=== PATIENT | female | born 1970 | race Caucasian/White ===

== ENCOUNTER 2018-05-27 01:21 | Emergency (ER) | payer BC ==
[2018-05-27] MEDS ORDERED: LORazepam 1 MG Tab PO ONE (01:41)
--- NOTE | 2018-05-27 01:42 | EDM.PDOC ---
ED HPI GENERAL MEDICAL PROBLEM - General Chief Complaint: General Stated Complaint: POSSIBLE ANXIETY ATTACK Time Seen by Provider: 05/27/18 01:30 - History of Present Illness INITIAL COMMENTS - FREE TEXT/NARRATIVE: HISTORY AND PHYSICAL: History of present illness: The patient is a 48-year-old female who has a history of retention hypercholesterolemia and hypothyroidism who follows at [facility] and presents with symptoms that she feels are similar to an anxiety attack. She says she has had issues with anxiety in the past episodically and she has felt more anxious lately due to a number of family deaths and in the past she had medication for this but she never used it so was never refilled. She says that she doesn't drink an excessive amount of caffeinated products doesn't smoke or do any drugs and only occasionally drinks. She said that this evening about 11: 30 PM she was trying to go to sleep and she was laying in bed and did feel a little bit anxious which she says is described very ill-defined and just an internal sensation she gets, and that she got up and sat in the recliner and said that it seemed to worsen but it was not associated with palpitations but there was some shortness of breath and dizziness/lightheadedness. Patient passed out or blackout she wasn't nauseated she didn't have any abdominal pain. She has no chest pain per se but says that she feels like she has to control her breathing but she does not feel short of breath. She says she feels internally shaky although she is not visibly shaking. When it did not rhianna she came in for evaluation. Earlier yesterday she had a completely normal day without any systemic complaints and ate and drink normally had normal urine output and no diarrhea or other systemic complaints. She has no weakness numbness tingling in her extremities. Patient states she did forget to take her blood pressure medication at the normal time and didn't take it this evening at 12:30 AM. Review of systems: As per history of present illness and below otherwise all systems reviewed and negative. Past medical history: As per history of present illness and as reviewed below otherwise noncontributory. Surgical history: As per history of present illness and as reviewed below otherwise noncontributory. Social history: No reported history of drug or alcohol abuse. Family history: As per history of present illness and as reviewed below otherwise noncontributory. Physical exam: General: Well-developed well-nourished female who is nontoxic and vital signs are reviewed by me. She is speaking clearly and easily in the ED without distress HEENT: Atraumatic, normocephalic, pupils reactive, negative for conjunctival pallor or scleral icterus, mucous membranes moist, throat clear, neck supple, nontender, trachea midline. Lungs: Clear to auscultation, breath sounds equal bilaterally, chest nontender. No worker breathing wheezing or stridor Heart: S1S2, regular rate and rhythm no overt murmurs Abdomen: Soft, nondistended, nontender. Negative for masses or hepatosplenomegaly. NABS Pelvis: Deferred Genitourinary: Deferred. Rectal: Deferred. Extremities: Atraumatic, negative for cords or calf pain. Neurovascular unremarkable. Neuro: Awake, alert, oriented. Cranial nerves II through XII unremarkable. Cerebellum unremarkable. Motor and sensory unremarkable throughout. Exam nonfocal. Diagnostics: EKG CBC CMP TSH troponin magnesium UA chest x-ray Therapeutics: Oxygen as needed desk monitor Ativan by mouth I discussed all testing results with the patient and family at bedside and she does feel improved. We discussed options and she would prefer outpatient treatment and she will contact her provider at [facility] this morning to discuss possibilities of having some medication available if she has another episode like this. Advised on reasons to return to the ED Impression: Episode of anxiety/ill feeling improved Definitive disposition and diagnosis as appropriate pending reevaluation and review of above. - Related Data Allergies Allergy/AdvReac Type Severity Reaction Status Date / Time No Known Allergies Allergy Verified 05/27/18 01:32 Home Meds: Home Meds Cetirizine [ZyrTEC] 10 mg PO DAILY 05/27/18 [History] Levothyroxine Sodium [Synthroid] 112 mg PO DAILY 05/27/18 [History] Lisinopril/Hydrochlorothiazide [Lisinopril-Hctz 20-12.5 mg Tab] 1 mg PO DAILY [History] Montelukast [Singulair] 10 mg PO DAILY 05/27/18 [History] atorvaSTATin [Lipitor] 40 mg PO DAILY 05/27/18 [History] Social & Family History - Tobacco Use Smoking Status *Q: Never Smoker Second Hand Smoke Exposure: No - Caffeine Use Caffeine Use: Reports: None - Recreational Drug Use Recreational Drug Use: No ED ROS GENERAL - Review of Systems Review Of Systems: ROS reveals no pertinent complaints other than HPI. ED EXAM, GENERAL - Physical Exam Exam: See Below (see dictation) Course - Vital Signs Last Recorded V/S: Last Vital Signs Temp 36.3 C 05/27/18 01:27 Pulse 77 05/27/18 02:06 Resp 18 05/27/18 02:06 BP 149/77 H 05/27/18 02:06 Pulse Ox 99 05/27/18 01:27 - Orders/Labs/Meds Orders: Active Orders 24 hr Category Date Time Status Cardiac Monitoring [RC] . DIRECTED Care 05/27/18 01:40 Active EKG Documentation Completion [RC] STAT Care 05/27/18 01:34 Active Oxygen Therapy, ED [RC] ASDIRECTED Care 05/27/18 01:40 Active Pulse Oximetry [RC] ASDIRECTED Care 05/27/18 01:40 Active Chest 1V Frontal [CR] Stat Exams 05/27/18 01:41 Taken Labs: Laboratory Tests 05/27/18 05/27/18 05/27/18 Range/Units 02:11 02:11 02:35 WBC 7.46 (4.0-11.0) K/uL RBC 4.26 L (4.30-5.90) M/uL Hgb 13.0 (12.0-16.0) g/dL Hct 37.3 (36.0-46.0) % MCV 87.6 (80.0-98.0) fL MCH 30.5 (27.0-32.0) pg MCHC 34.9 (31.0-37.0) g/dL RDW Std Deviation 39.9 (28.0-62.0) fl RDW Coeff of [place] 13 (11.0-15.0) % Plt Count 264 (150-400) K/uL MPV 9.60 (7.40-12.00) fL Neut % (Auto) 58.5 (48.0-80.0) % Lymph % (Auto) 30.2 (16.0-40.0) % [place] % (Auto) 9.2 (0.0-15.0) % Eos % (Auto) 1.7 (0.0-7.0) % Baso % (Auto) 0.4 (0.0-1.5) % Neut # (Auto) 4.4 (1.4-5.7) K/uL Lymph # (Auto) 2.3 (0.6-2.4) K/uL [place] # (Auto) 0.7 (0.0-0.8) K/uL Eos # (Auto) 0.1 (0.0-0.7) K/uL Baso # (Auto) 0.0 (0.0-0.1) K/uL Nucleated RBC % 0.0 /100WBC Nucleated RBCs # 0 K/uL Sodium 140 (136-145) mmol/L Potassium 3.6 (3.5-5.1) mmol/L Chloride 104 (98-107) mmol/L Carbon Dioxide 29.6 (21.0-32.0) mmol/L BUN 18 (7.0-18.0) mg/dL Creatinine 1.2 H (0.6-1.0) mg/dL Est Cr Clr Drug Dosing 48.43 mL/min Estimated GFR (MDRD) 47.6 ml/min Glucose 133 H (74-106) mg/dL Calcium 9.1 (8.5-10.1) mg/dL Magnesium 1.8 (1.8-2.4) mg/dL Total Bilirubin 0.3 (0.2-1.0) mg/dL AST 16 (15-37) IU/L ALT 21 (14-63) IU/L Alkaline Phosphatase 72 (46-116) U/L Troponin I < 0.050 (0.000-0.056) ng/mL Total Protein 7.1 (6.4-8.2) g/dL Albumin 3.8 (3.4-5.0) g/dL Globulin 3.3 (2.0-3.5) g/dL Albumin/Globulin Ratio 1.2 L (1.3-2.8) TSH 3rd Generation 0.94 (0.36-3.74) uIU/mL Urine Color YELLOW Urine Appearance CLEAR Urine pH 5.5 (5.0-8.0) Ur Specific [place] <= 1.005 (1.001-1.035) Urine Protein NEGATIVE (NEGATIVE) mg/dL Urine Glucose (UA) NEGATIVE (NEGATIVE) mg/dL Urine Ketones NEGATIVE (NEGATIVE) mg/dL Urine Occult Blood NEGATIVE (NEGATIVE) Urine Nitrite NEGATIVE (NEGATIVE) Urine Bilirubin NEGATIVE (NEGATIVE) Urine Urobilinogen 0.2 (<2.0) EU/dL Ur Leukocyte Esterase NEGATIVE (NEGATIVE) Urine RBC NONE SEEN (0-2/HPF) Urine WBC 0-1 (0-5/HPF) Ur Epithelial Cells RARE (NONE-FEW) Urine Bacteria RARE (NEGATIVE) Urine Mucus LIGHT (NONE-MOD) Meds: Medications Discontinued Medications Generic Name Dose Route Start Last Admin Trade Name Shelly PRN Reason Stop Dose Admin Lorazepam 1 mg 05/27/18 01:41 05/27/18 01:51 Ativan PO 05/27/18 01:42 1 mg ONETIME ONE Administration Departure - Departure Time of Disposition: 03:14 Disposition: Home, Self-Care 01 Condition: Good Clinical Impression: Ill feeling, Episode of anxiety - Discharge Information Referrals: PCP,None [Primary Care Provider] - Forms: ED Department Discharge Additional Instructions: The following information is given to patients seen in the emergency department who are being discharged to home. This information is to outline your options for follow-up care. We provide all patients seen in our emergency department with a follow-up referral. The need for follow-up, as well as the timing and circumstances, are variable depending upon the specifics of your emergency department visit. If you don't have a primary care physician on staff, we will provide you with a referral. We always advise you to contact your personal physician following an emergency department visit to inform them of the circumstance of the visit and for follow-up with them and/or the need for any referrals to a consulting specialist. The emergency department will also refer you to a specialist when appropriate. This referral assures that you have the opportunity for followup care with a specialist. All of these measure are taken in an effort to provide you with optimal care, which includes your followup. Under all circumstances we always encourage you to contact your private physician who remains a resource for coordinating your care. When calling for followup care, please make the office aware that this follow-up is from your recent emergency room visit. If for any reason you are refused follow-up, please contact the [facility] emergency department at and ask to speak to the emergency department charge nurse. [address] [place] [address] Please contact her provider later today and discuss with her some options for handling these types of episodes going forward and any further testing she might feel is indicated. Try to reduce caffeinated products and reduce stressors. Return to ER as needed and as discussed. - My Orders Last 24 Hours: My Active Orders 05/27/18 01:34 EKG Documentation Completion [RC] STAT 05/27/18 01:40 Cardiac Monitoring [RC] . DIRECTED Oxygen Therapy, ED [RC] ASDIRECTED Pulse Oximetry [RC] ASDIRECTED 05/27/18 01:41 Chest 1V Frontal [CR] Stat - Assessment/Plan Last 24 Hours: My Active Orders 05/27/18 01:34 EKG Documentation Completion [RC] STAT 05/27/18 01:40 Cardiac Monitoring [RC] . DIRECTED Oxygen Therapy, ED [RC] ASDIRECTED Pulse Oximetry [RC] ASDIRECTED 05/27/18 01:41 Chest 1V Frontal [CR] Stat
[2018-05-27 02:52] LABS: CHLORIDE,CL 104 mmol/L (98-107); SODIUM,NA 140 mmol/L (136-145)
--- NOTE | 2018-05-27 13:05 | CR ---
EXAM DATE: 05/27/18 PATIENT'S AGE: 48 Patient: VINCENT GARAY Facility: [place], [place] Site . Site : [id number] Study: XRay Chest [id number]/21/2018 2:11:06 AM Ordering Physician: Marni Dior Final Report: INDICATION: Pain, Shortness of Breath, Anxiety Attack TECHNIQUE: Chest 1 view. COMPARISON: None. FINDINGS: Cardiovascular and mediastinum: Heart size and vasculature are normal in caliber and appearance. Mediastinum is within normal limits. Lungs and pleural space: Lungs are clear. No sign of infiltrate or mass. No sign of pleural effusion. No pneumothorax. Bones and soft tissues: No significant findings. IMPRESSION: Unremarkable chest. Dictated by: Royer Chou MD @ 05/27/2018 02:22:37 (Electronic Signature) Report Signed by Proxy. [facility] HOSPITALRadha
== END 2018-05-27 03:30 | disposition home or self-care (01) ==
LOC: MW.ED 01:21
DX: F41.9 Anxiety disorder, unspecified (principal); Z79.899 Other long term (current) drug therapy
CPT/HCPCS: 36415; 71045; 80053; 81001; 83735; 84443; 84484; 85025; 99284; A9270; 99283

== ENCOUNTER 2020-12-03 08:07 | Day surgery (SDC) | payer BC ==
[~2020-12-03 08:07] MED LIST: Lactated Ringers 1,000 ML IV SCH; Sodium Chloride 0.9% 10 ML SDV IV PRN; Sodium Chloride 0.9% 10 ML Syringe FLUSH PRN; Sodium Chloride 0.9% 2.5 ML Syringe FLUSH PRN
--- NOTE | 2020-12-03 08:41 | PCM.PREANE ---
Preanesthetic Assessment - Anesthesia/Transfusion/Family Hx Anesthesia History: Prior Anesthesia Without Reaction Family History of Anesthesia Reaction: No Transfusion History: No Prior Transfusion(s) - Physical Assessment NPO Status Date: 12/03/20 NPO Status Time: 00:05 Vital Signs: Last Vital Signs Temp 35.7 C L 12/03/20 08:22 Pulse 77 12/03/20 08:22 Resp 16 12/03/20 08:22 BP 131/81 12/03/20 08:22 Pulse Ox 98 12/03/20 08:22 Height: 1.57 m Weight: 93.44 kg ASA Class: 2 - Allergies Allergies/Adverse Reactions: Allergies Allergy/AdvReac Type Severity Reaction Status Date / Time No Known Allergies Allergy Verified 12/03/20 08:37 - Acknowledgements Pt an Appropriate Candidate for the Planned Anesthesia: Yes Alternatives and Risks of Anesthesia Discussed w Pt/Guardian: Yes Pt/Guardian Understands and Agrees with Anesthesia Plan: Yes PreAnesthesia Questionnaire HEENT History: Reports: Allergic Rhinitis, Other (See Below) Other HEENT History: wears glasses/contacts Cardiovascular History: Reports: High Cholesterol, Hypertension Other Cardiovascular History: hx of hypertension-no longer on medication Respiratory History: Reports: None Gastrointestinal History: Reports: GERD, Other (See Below) Other Gastrointestinal History: occasional heartburn- takes TUMS Genitourinary History: Reports: None POWER PRESS TENDER History: Reports: None Musculoskeletal History: Reports: None Neurological History: Reports: Vertigo, Other (See Below) Other Neuro History: hx of motion sickness and claustrophobia Psychiatric History: Reports: Anxiety Other Psychiatric History: does not take any medication for anxiety Endocrine/Metabolic History: Reports: Hypothyroidism, Obesity/BMI 30+ Hematologic History: Reports: None Immunologic History: Reports: None Oncologic (Cancer) History: Reports: None Dermatologic History: Reports: None - Infectious Disease History Infectious Disease History: Reports: None - Past Surgical History Head Surgeries/Procedures: Reports: None HEENT Surgical History: Reports: None Cardiovascular Surgical History: Reports: None Respiratory Surgical History: Reports: None GI Surgical History: Reports: Cholecystectomy Female Surgical History: Reports: None Endocrine Surgical History: Reports: None Neurological Surgical History: Reports: None Musculoskeletal Surgical History: Reports: None Oncologic Surgical History: Reports: None Dermatological Surgical History: Reports: Skin Biopsy, Other (See Below) - SUBSTANCE USE Tobacco Use Status *Q: Never Tobacco User - HOME MEDS Home Medications: Home Meds atorvaSTATin [Lipitor] 40 mg PO BEDTIME 05/27/18 [History] Levothyroxine [Synthroid] 100 mcg PO BEDTIME 09/22/19 [History] Multivitamin [Daily Multiple Vitamin] 1 tab PO DAILY 09/22/19 [History] Cetirizine [ZyrTEC] 10 mg PO DAILY 11/27/20 [History] - CURRENT (IN HOUSE) MEDS Current Meds: Current Medications Lactated Ringer's (Ringers, Lactated) 1,000 mls @ 125 mls/hr IV ASDIRECTED STEPHANY Last Admin: 12/03/20 08:21 Dose: 125 mls/hr Documented by: Sodium Chloride (Sodium Chloride 0.9% 10 Ml Syringe) 10 ml FLUSH ASDIRECTED PRN PRN Reason: Keep Vein Open Sodium Chloride (Sodium Chloride 0.9% 2.5 Ml Syringe) 2.5 ml FLUSH ASDIRECTED PRN PRN Reason: Keep Vein Open Sodium Chloride (Sodium Chloride 0.9% 10 Ml Syringe) 10 ml FLUSH ASDIRECTED PRN PRN Reason: Keep Vein Open Sodium Chloride (Sodium Chloride 0.9% 2.5 Ml Syringe) 2.5 ml FLUSH ASDIRECTED PRN PRN Reason: Keep Vein Open Sodium Chloride (Sodium Chloride 0.9% 10 Ml Sdv) 10 ml IV ASDIRECTED PRN PRN Reason: IV Use
[2020-12-03] MEDS ORDERED: fentaNYL 100 MCG/2 ML SDV ONE (08:47)
[2020-12-03] MEDS ORDERED: Propofol 200 MG/20 ML SDV ONE (08:47)
--- NOTE | 2020-12-03 09:44 | PCM.OPNOTE ---
- General Post-Op/Procedure Note Date of Surgery/Procedure: 12/03/20 Operative Procedure(s): Screening colonoscopy Findings: Normal colonoscopy Pre Op Diagnosis: Screening colonoscopy Post-Op Diagnosis: Normal colonoscopy Anesthesia Technique: MAC Primary Surgeon: Lindy Rodriguez Condition: Good
--- NOTE | 2020-12-03 10:01 | PCM.POSTAN ---
POST ANESTHESIA ASSESSMENT - MENTAL STATUS Mental Status: Alert (ano anesthetic complications), Oriented - VITAL SIGNS Vital Signs: Last Vital Signs Temp 96.3 F L 12/03/20 08:22 Pulse 76 12/03/20 09:42 Resp 14 12/03/20 09:42 BP 112/61 12/03/20 09:42 Pulse Ox 96 12/03/20 09:42 - RESPIRATORY Respiratory Status: Respiratory Rate WNL, Airway Patent, O2 Saturation Stable - CARDIOVASCULAR CV Status: Pulse Rate WNL, Blood Pressure Stable - GASTROINTESTINAL GI Status: No Symptoms - POST OP HYDRATION Hydration Status: Adequate & Stable
--- NOTE | 2020-12-03 20:07 | OR ---
SURGEON: LINDY RODRIGUEZ MD DATE OF PROCEDURE: 12/03/2020 PREOPERATIVE DIAGNOSIS: Screening colonoscopy. POSTOPERATIVE DIAGNOSIS: Screening colonoscopy. PROCEDURE PERFORMED: Screening colonoscopy. PRIMARY SURGEON: Lindy Rodriguez MD ANESTHESIA: MAC. INSTRUMENT USED: Olympus colonoscope. EXTENT OF EXAM: To the cecum. PREPARATION: Good. LIMITATIONS: None. INDICATIONS FOR EXAMINATION: The patient is a 50-year-old female who presents for screening colonoscopy. I explained the procedure, expected perioperative course, and the risks. The patient verbalized understanding and wishes to proceed. PROCEDURE IN DETAIL: The patient was brought in to the endoscopy suite and placed in a left lateral decubitus position. A time-out was completed verifying the patient's name, age, date of , allergies, and procedure to be performed. Monitored anesthesia care was induced and continuous oxygen was provided via face mask throughout the procedure. After adequate sedation was achieved, a digital rectal exam was performed. This exam was within normal limits. A well-lubricated colonoscope was inserted in the rectum and advanced under direct visualization to the level of the cecum. The cecum was identified by both visual and anatomic landmarks. A photograph was taken of the cecum as well as with the scope retroflexed within the cecum. The scope was then fully withdrawn while examining the color, texture, anatomy, and integrity of mucosa from the cecum to the anal canal. The findings were consistent with normal colonic mucosa. The scope was brought into the rectum and retroflexed to allow visualization of the anal canal opening. This appeared normal and a photograph was taken. The scope was then straightened out and fully withdrawn. The cecum to anus time was 9 minutes. The patient tolerated the procedure well and was transferred to the PACU in stable condition. ENDOSCOPIC DIAGNOSIS: Normal colonoscopy. RECOMMENDATIONS: Follow up in clinic in 10 years. [facility] / [place] /[id number]
== END 2020-12-03 10:06 | disposition home or self-care (01) ==
LOC: MW.SDS 08:07
PROVIDERS: ATTEND Surgery
DX: Z12.11 Encounter for screening for malignant neoplasm of colon (principal); I10 Essential (primary) hypertension; E78.00 Pure hypercholesterolemia, unspecified; E03.9 Hypothyroidism, unspecified; E66.9 Obesity, unspecified; Z68.37 Body mass index [BMI] 37.0-37.9, adult; Z91.09 Other allergy status, other than to drugs and biological substances; Z79.899 Other long term (current) drug therapy; Z98.890 Other specified postprocedural states
CPT/HCPCS: 45378; J2704; J3010; J7120; 00812